=== PATIENT | male | born 1980 ===

== ENCOUNTER 2020-04-19 19:30 | Emergency (ER) | payer OTHER ==
[2020-04-19 20:19] VITALS: BP 105/72
[2020-04-19] MEDS ORDERED: IBUPROFEN 600 MG TAB PO ONE (20:59)
[2020-04-19] MEDS ORDERED: ACETAMINOPHEN 500 MG TAB PO ONE (20:59)
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
== END 2020-04-19 23:55 | disposition home or self-care (01) ==
LOC: ED 19:30
DX: S20.219A Contusion of unspecified front wall of thorax, initial encounter (principal); M25.561 Pain in right knee; M25.562 Pain in left knee; M62.830 Muscle spasm of back; Z79.1 Long term (current) use of non-steroidal anti-inflammatories (NSAID); Z79.899 Other long term (current) drug therapy; V49.59XA Passenger injured in collision with other motor vehicles in traffic accident, initial encounter; W22.10XA Striking against or struck by unspecified automobile airbag, initial encounter; Y93.89 Activity, other specified; Y92.410 Unspecified street and highway as the place of occurrence of the external cause; Y99.8 Other external cause status
CPT/HCPCS: 70450; 71046; 72100; 72125; 73521